=== PATIENT | female | born 1990 | race Caucasian/White ===

== ENCOUNTER 2016-11-26 08:00 | Inpatient (IN) ==
[2016-11-26] MEDS ORDERED: Metoclopramide 10 MG/2 ML VIAL IVP PRN (08:33)
[2016-11-26] MEDS ORDERED: Famotidine 20 MG/2 ML VIAL IVP PRN (08:33)
[2016-11-26] MEDS ORDERED: miSOPROStol 25 MCG TABLET VG PRN (08:33)
[2016-11-26] MEDS ORDERED: *HR* Nalbuphine 20 MG/ML AMPUL IVP PRN (08:35)
--- NOTE | 2016-11-26 08:40 | OB/GYN History & Physical ---
Date of Encounter: 11/26/16 Time of Encounter: 08:35 Assessment and Plan (1) and not yet delivered in third trimester Current visit: Yes Status: Acute (2) 39 weeks gestation of Current visit: Yes Status: Acute (3) Elective induction of labor planned Current visit: Yes Status: Acute We will induce patient with a Bui catheter and by mouth Cytotec 50 g. History of Present Illness HPI: Ms. Harrington is a 26 year old female 2 para 1 at 39-2/7 weeks by an 11-4/7 week ultrasound who presented for induction of labor secondary to term with favorable cervix. Patient has had a relatively complicated course biggest issue was she kept getting a recurrent Bartholin's abscess which needed to be opened up. Patient had an I&D performed at least 4 times the last time I was able to keep a Word catheter within the gland to allow it to heal over that. Since that time she has had no complications. Patient has been measuring greater than dates we did do an ultrasound on her 2 weeks ago which placed the baby at 3161 g which was the 80th percentile with an MARY of 18 cm. Her GBS status was negative. Did advise the patient once she got in the 39 week range and had a favorable cervix we could discuss induction. Patient did have a favorable cervix induction was scheduled. Past Med Surg Social Fam HX - Past Medical History Medical history: no medical history Psychiatric history: no psych history - Past Surgical History Surgical History: no surgical history - Social History Smoking Status: Current every day smoker Smokeless Tobacco Status: No Alcohol use: none Drug use: none Occupational status: unemployed Current living situation: Home - Independent Activity Level: Independent ambulation Recent Out of Country Travel Within the Last 8 Weeks: No Exposure or Possible Exposure to Illness During Travel: No Obstetrical History - Pregnancies : 2 Para: 1 Livin Medications and Allergies Vitamins 1 tab PO DAILY 11/26/16 [History] Allergies No Known Allergies Allergy (Verified 07/12/16 20:24) Review of System OB All systems PM: reviewed and no additional remarkable complaints except as stated Exam - Constitutional Constitutional: well developed, well nourished, no acute distress, average body habitus - HEENT HEENT: PERRL - Neck Neck exam: full ROM - Lungs Respiratory exam: CTAB - Cardiovascular Cardiovascular exam: RRR - Cervix Dilation: 2 Effacement: 80 Station: -2 (Bui catheter placed artificial rupture membranes encountered. 30 mL balloon inflated no Cytotec placed at this time.) Results All other labs normal. - VTE Reasons for not Prescribing Prophylaxis: Treatment not Indicated - Low risk for VTE
[2016-11-26] MEDS ORDERED: Ringers Solution, Lactated 1,000 ML IVC SCH (08:45)
[2016-11-26] MEDS ORDERED: miSOPROStol 100 MCG TABLET PO ONE (09:01)
[2016-11-26 09:08] LABS: Basophils % 0.3 %; Eosinophils # 0.2 K/mcL (0.0-0.6); Eosinophils % 2.3 %; Hemoglobin 10.6 g/dL (11.5-15.4); Immature Granulocytes % 0.4 % (0-4); Lymphocytes # 2.4 K/mcL (0.6-4.6); Lymphocytes % 23.4 %; Mean Corpuscular HGB Conc 33.1 g/dL (31.6-35.5); Mean Corpuscular Hemoglobin 28.7 pg (28.0-33.3); Mean Corpuscular Volume 86.7 fL (83.0-100.0); Mean Platelet Volume 11.6 fL (9.4-12.4); Monocytes # 0.9 K/mcL (0.0-1.3); Monocytes % 8.3 %; Neutrophils # 6.7 K/mcL (1.6-8.9); Platelet Count 333 K/mcL (140-400); Red Blood Count 3.69 M/mcL (3.82-4.97); Red Cell Distribution Width 12.9 % (11.5-14.5); Segmented Neutrophils % 65.3 %
--- NOTE | 2016-11-26 10:10 | Anesthesia Evaluation PreOp ---
Date of Encounter: 11/26/16 Time of Encounter: 10:05 - Past History Planned Operation: labor epidural Cardiac History: Denies any Significant Hx Pulmonary History: Smoker (1/2 ppd for 9 yrs.) COVER OPERATOR History: Denies Any Significant HX Other Medical History: GERD Anesthesia History: No Prior Anesthetic Complications (never had general anesthesia) : Yes Alcohol Use: none Drug use: none Medications and Allergies Vitamins 1 tab PO DAILY 11/26/16 [History] Allergies No Known Allergies Allergy (Verified 07/12/16 20:24) - Meds/Allergy Pre-op Review Medications Reviewed: Yes Allergies Reviewed: Yes Beta Blockers on Current Med List: No Anesthesia Results - Labs 11/26/16 08:30 Anesthesia Exam 111/73,90,16,98% Height: 5'2" Weight: 174# NPO (# of Hours): mn Pain Scale: 4 Pain Scale Used: Numeric (1 - 10) - HEENT Pupil (Motor): Pupils equal, EOMI Mallampati: II Teeth: Normal Oral Opening: Greater than 3 - COVER OPERATOR LOC: Oriented COVER OPERATOR Motor: Normal RUE, Normal LUE, Normal RLE, Normal LLE, Normal Face COVER OPERATOR Sensory: Normal: RUE, LUE, RLE, LLE, Face - Cardiac Rhythm: Regular - Pulmonary Breath Sounds: bilateral Clear Respiratory Effort: Symmetrical Anesthesia Assess/Plan ASA Score: 2 Modified Leicester Scale for Level of Consciousness: Cooperative, oriented, and tranquil Anesthetic Plan: Regional Monitoring Plan: Standard Monitors
[2016-11-26] MEDS ORDERED: Bupivacaine-MPF 0.25% 10 ML VIAL EP ONE (10:13)
[2016-11-26] MEDS ORDERED: *HR* FentaNYL (PF) 100 MCG/2 ML VIAL EP ONE (10:13)
[2016-11-26] MEDS ORDERED: Epidural Premix (fent/bupiv) 110 ML EP SCH (10:15)
--- NOTE | 2016-11-26 10:49 | OB Labor Progress Note ---
Date of Encounter: 11/26/16 Time of Encounter: 10:47 Labor Progress Note - Subjective Subjective: Patient resting in bed, denies any pain at this time. Discussed POC with patient. Patient denies any questions or concerns. - Cervix Cervix: 4/60/-2 - Heart Tones Heart Tones: FHR 145 bpm moderate variability +15x15 accels no decels noted. Cat 1 tracing. - [place]: 1-2.5 min apart - Interventions Interventions: SVE, IUPC placed without difficulty. Patient tolerated well. - Plan Plan: Continue labor management.
[2016-11-26] MEDS: Oxytocin 20 units/ LR 1000 mL 20 UNIT/1,000 ML BAG IVC SCH ×2 (13:15→21:26)
[2016-11-26] MEDS ORDERED: Acetaminophen 325 MG TABLET PO PRN ×2 (13:15→21:26)
[2016-11-26] MEDS ORDERED: Bupivacaine-MPF 0.25% 10 ML VIAL ONE ×3 (14:21→17:44)
[2016-11-26] MEDS ORDERED: *HR* FentaNYL (PF) 100 MCG/2 ML VIAL ONE ×2 (14:21→17:44)
[2016-11-26] MEDS ORDERED: Epidural Premix (fent/bupiv) 110 ML EP ONE (14:21)
--- NOTE | 2016-11-26 15:31 | Anesthesia Procedures ---
Date of Encounter: 11/26/16 Time of Encounter: 14:23 Procedures: Anesthesia - Epidural/Spinal Patient ID/Chart reviewed: Yes Patient examined: Yes OB Eval: Gestational age: 39 OB Eval: : 2 OB Eval: Hx Para: 1 OB Eval: Dilated at (cm): 5 OB Eval: Contractions: Non-stressed pattern Consent Obtained: Yes Supplemental Oxygen: None/Room Air Site Prep: Aseptic Technique, Sterile prep and drape, Povidone-Iodine 1% Local Anesthetic: Lidocaine 1% Amount of Local Anesthetic used: 3 Touhy Needle Gauge: 18 Touhy Needle Depth (cm): 6 Catheter Depth at Skin (cm): 14 Test Dose (1.5% Lido + Epi): Volume given (mls): 3 Test Dose Result: Negative Loading Dose: 0.25% Marcaine (mls): 8 Loading Dose: Fentanyl (mcg): 100 Loading Dose Administered: Thru Catheter Infusion Med: 0.125% Bupivacaine w/ 2 mcg/ml Fentanyl Infusion Rate (mls/hr): [address]: Tegaderm, Tape Interspace Used: L3-L4 Loss of Resistance (JERMAIN): Yes Blood: No CSF: No Paresthesia: No Vitals + FHT's: 3 Vital Signs Time 1423 1425 1430 1435 1440 1445 1450 BP 117/64 118/68 116/62 124/72 124/76 117/64 111/56 Pulse 106 91 98 92 80 75 84 FHTs 140 140 140 140 140 84 140
--- NOTE | 2016-11-26 17:38 | OB Labor Progress Note ---
Date of Encounter: 11/26/16 Time of Encounter: 17:35 Labor Progress Note - Subjective Subjective: Patient breathing through contractions. Patient waiting for epidural to be replaced. - Cervix Cervix: 8/100/0 - Heart Tones Heart Tones: 145bpm moderate variability + 15x15 accels variables noted. - [place]: 2-3 min apart - Interventions Interventions: SVE, anesthesia to replace epidural for pain management. - Plan Plan: EFM, labor management.
--- NOTE | 2016-11-26 18:07 | Anesthesia Procedures ---
Date of Encounter: 11/26/16 Time of Encounter: 17:48 Procedures: Anesthesia - Epidural/Spinal Patient ID/Chart reviewed: Yes Patient examined: Yes OB Eval: Gestational age: 39 weeks, 2 days OB Eval: : 2 OB Eval: Hx Para: 1 OB Eval: Dilated at (cm): 8 OB Eval: Contractions: Non-stressed pattern Consent Obtained: Yes Supplemental Oxygen: None/Room Air Site Prep: Aseptic Technique, Sterile prep and drape, Povidone-Iodine 1% Patient position: upright Local Anesthetic: Lidocaine 1% Amount of Local Anesthetic used: 3 Touhy Needle Gauge: 18 Touhy Needle Depth (cm): 7 Catheter Depth at Skin (cm): 15 Test Dose (1.5% Lido + Epi): Volume given (mls): 3 Test Dose Result: Negative Loading Dose: 0.25% Marcaine (mls): 3 Loading Dose: Fentanyl (mcg): 100 Loading Dose Administered: Thru Catheter Infusion Med: 0.125% Bupivacaine w/ 2 mcg/ml Fentanyl Infusion Rate (mls/hr): [address]: Tape Interspace Used: L4-L5 Loss of Resistance (JERMAIN): Yes Blood: No CSF: No Paresthesia: No Procedure: Repeat FIDELIA after manipulation of 1st epidural catheter failed to comfort patient pain. First epidural cath removed intact. Repeat epidural 1st pass without any immediate noted complications. VSS and FHT stable throughout. Vitals + FHT's: 1748 BP 134/77 P 115 R 20 1803 BP 110/60 P 124 R 16
--- NOTE | 2016-11-26 20:06 | OB/GYN Procedure Note ---
Delivery - Delivery Date: 11/26/16 Provider: Alton Stevenson Intrapartum events: none Delivery induction: AROM, oxytocin, hart, misoprostol Delivery monitor: external FHT, external uterine, internal uterine Anesthesia: epidural Estimated Blood Loss: 100 - (s) A Infant Delivery Date: 11/26/16 Delivery Time: 19:49 Presentation: vertex Position: DIMITRI Route of delivery: Gender: Female Viability: Viable Pounds: 7 Ounces: 9 Weight Gram: 3.425 kg at 1 minute: 8 at 5 mins: 9 Shoulder Dystocia: not encountered Specimens collected: cord blood Placenta: spontaneous - Repair Episiotomy: none Laceration Description: None - Complications Delivery complications: none Delivery comments: Patient is a 26-year-old 2 para 1 at 39-2/7 she presented for induction of labor. Patient had a favorable cervix she reports to labor and delivery where Hart catheter was placed. We also gave her by mouth Cytotec since we artificially ruptured her. Patient's catheter fell out a couple hours later patient became uncomfortable and epidural was placed. Patient progressed to complete patient push for approximately 20 minutes before delivering a viable male in left occiput anterior presentation at 1947. There was no nuchal cord no meconium the was bulb suctioned on the abdomen Apgars were 8 at 1 minute 9 at 5 minutes infant weight was 7 lbs. 9 oz. Placenta was then delivered spontaneously with a three-vessel cord, obstruction Dr. Stevenson, assistant professor of religion Wendell Archer OMS3 anesthesia epidural estimated blood loss 100 mL perineum cervix and vagina was all visualized intact. Patient tolerated the delivery well she will be observed one out before been taking floor. - Disposition Mom disposition: stable in LDR disposition: stable in LDR
[2016-11-26] MEDS ORDERED: Rho Immune Globulin 1,500 UNIT SYRINGE IM PRN (21:26)
[2016-11-26] MEDS ORDERED: Oxytocin 20 units/ LR 1000 mL 20 UNIT/1,000 ML BAG IV SCH (21:26)
[2016-11-26] MEDS ORDERED: Measles/Mumps/Rubella Vacc 0.5 ML VIAL SQ PRN (21:26)
[2016-11-26] MEDS ORDERED: Oxytocin 20 units/ LR 1000 mL 20 UNIT/1,000 ML BAG IVC ONE (21:26)
[2016-11-27] MEDS: Ibuprofen 600 MG TABLET PO PRN ×3 (00:47→16:14)
[2016-11-27 03:52] LABS: Basophils % 0.2 %; Hemoglobin 9.5 g/dL (11.5-15.4); Immature Granulocytes % 0.6 % (0-4); Lymphocytes # 2.2 K/mcL (0.6-4.6); Lymphocytes % 8.8 %; Mean Corpuscular HGB Conc 33.9 g/dL (31.6-35.5); Mean Corpuscular Hemoglobin 29.2 pg (28.0-33.3); Mean Corpuscular Volume 86.2 fL (83.0-100.0); Mean Platelet Volume 11.6 fL (9.4-12.4); Monocytes % 7.9 %; Neutrophils # 20.4 K/mcL (1.6-8.9); Platelet Count 284 K/mcL (140-400); Red Blood Count 3.25 M/mcL (3.82-4.97); Red Cell Distribution Width 12.9 % (11.5-14.5); Segmented Neutrophils % 82.5 %
[2016-11-27 04:00] LABS: Basophils # 0.1 K/mcL (0.0-0.2)
[2016-11-27 04:23] LABS: Platelet Estimate Normal (Normal)
[2016-11-27 04:24] LABS: Toxic Granulation Present (Not Present)
--- NOTE | 2016-11-27 08:45 | Discharge Summary ---
Date of Encounter: 11/27/16 Time of Encounter: 08:42 - Discharge Diagnosis (1) Vaginal delivery Priority: Primary Status: Acute Comments: Continue routine care discharge home today follow up in 4-[address] Stevenson - Discharge Medications Prescriptions: Ibuprofen [Motrin] 600 mg PO Q6HR PRN #60 tablet PRN Reason: Cramping Home Medications: Vitamins 1 tab PO DAILY 11/26/16 [History] Ibuprofen [Motrin] 600 mg PO Q6HR PRN #60 tablet 11/27/16 [Rx] Allergies/Adverse Reactions: Allergies No Known Allergies Allergy (Verified 07/12/16 20:24) Data Procedures and tests throughout hospitalization: Laboratory Tests 11/26/16 11/27/16 08:30 03:18 WBC 10.3 24.7 H D RBC 3.69 L 3.25 L Hgb 10.6 L 9.5 L Hct 32.0 L 28.0 L MCV 86.7 86.2 MCH 28.7 29.2 MCHC 33.1 33.9 RDW 12.9 12.9 Plt Count 333 284 MPV 11.6 11.6 Immature Gran % 0.4 0.6 Seg Neutrophils % 65.3 82.5 Lymphocytes % 23.4 8.8 Monocytes % 8.3 7.9 Eosinophils % 2.3 0.0 Basophils % 0.3 0.2 Neutrophils # 6.7 20.4 H Lymphocytes # 2.4 2.2 Monocytes # 0.9 2.0 H Eosinophils # 0.2 0.0 Basophils # 0.0 0.1 Toxic Granulation Present A Platelet Estimate Normal Labs on day of discharge: Labs from last 24 hours 11/27/16 11/26/16 03:18 08:30 WBC 24.7 H D 10.3 RBC 3.25 L 3.69 L Hgb 9.5 L 10.6 L Hct 28.0 L 32.0 L MCV 86.2 86.7 MCH 29.2 28.7 MCHC 33.9 33.1 RDW 12.9 12.9 Plt Count 284 333 MPV 11.6 11.6 Immature Gran % 0.6 0.4 Seg Neutrophils % 82.5 65.3 Lymphocytes % 8.8 23.4 Monocytes % 7.9 8.3 Eosinophils % 0.0 2.3 Basophils % 0.2 0.3 Neutrophils # 20.4 H 6.7 Lymphocytes # 2.2 2.4 Monocytes # 2.0 H 0.9 Eosinophils # 0.0 0.2 Basophils # 0.1 0.0 Toxic Granulation Present A Platelet Estimate Normal Date of admission: 11/26/16 08:08 Primary care physician: PCP DOTTIE Consults: 11/26/16 21:26 Consult to Printer Slotter Operator [CONS] Routine Comment: Vaginal delivery, consult needed Discharging clinician: Etta Chau Anticipated date of discharge: 11/27/16 - Patient Status Disposition: Home, Self-Care Condition: Good Functional capacity at discharge: independent ambulation - Discharge Instructions Follow Up With: Alton Stevenson DO [Partnered Physician] - (December 26, 2016 @ 2:30 pm) DOTTIE,PCP [Primary Care Provider] - - Diet and Activity Activity: increase activity as tolerated Diet: regular diet Hospital Course Reason for admission: induction of labor Delivery: Episiotomy: none Other procedures: none complications: phlebitis Discharge diagnosis: IUP at term delivered [place] baby: female (bottle feeding) Time Attestation: Total time spent providing and/or coordinating discharge services: Time Spent: Less than 30 minutes Exam - Constitutional Vitals: Temp Pulse Resp BP Pulse Ox 98.5 F 83 16 112/65 97 11/27/16 07:36 11/27/16 07:36 11/27/16 07:36 11/27/16 07:36 11/27/16 07:36 General appearance IM: A&O X 3, pleasant, answers questions appropriately - Respiratory Respiratory exam: Present: CTAB - Cardiovascular Cardiovascular exam IM: Present: RRR, +S1, +S2 - GI/Abdominal GI/Abdominal exam IM: normal bowel sounds - Uterine Tone: Firm Uterus Position: 2 Fingers Below Umbilicus, Midline - Extremities Exam Extremities exam IM: Present: normal capillary refill, normal inspection - Neurological Exam Neurological exam: oriented X3, reflexes normal
[2016-11-27] MEDS ORDERED: NON-FORMULARY MEDICATION 1 EACH EACH (Prenatal Vitamins 1 TAB) PO SCH (09:00)
[2016-11-27] MEDS ORDERED: Prenatal Vit/FA 1 EACH TABLET PO SCH (09:00)
[2016-11-27 21:51] VITALS: BP 120/72
== END 2016-11-27 20:30 | disposition home or self-care (01) | DRG 560 ==
LOC: 1NENULAB 08:08 → 1NENUOBS 21:56
PROVIDERS: ADMIT Obstetrics & Gynecology; ATTEND Obstetrics & Gynecology